=== PATIENT | male | born 1965 | race Caucasian/White ===

== ENCOUNTER → 2018-08-27 | Outpatient (CLI) | payer OTHER ==
[2018-08-28 15:55] LABS: Stool Occult Bld Immuno 1 Negative (NEGATIVE)
== END | disposition home or self-care (01) ==
LOC: LAB SHORT 11:15 → LAB 11:15 → LAB FUT 08-10 16:15
PROVIDERS: Nurse Practitioner Family
DX: K62.5 Hemorrhage of anus and rectum (principal)
CPT/HCPCS: 82274

== ENCOUNTER → 2019-07-01 | Outpatient (CLI) | payer BC | END | disposition home or self-care (01) | LOC: LAB 10:23 → LAB SHORT 10:23 | DX: K58.9 Irritable bowel syndrome, unspecified (principal) | CPT/HCPCS: 87338 ==

== ENCOUNTER 2020-09-03 08:55 | Day surgery (SDC) | payer BC ==
[~2020-09-03] VITALS: Ht 180.3 cm; Wt 129.9 kg
[2020-09-03] MEDS ORDERED: METO100ER PO (09:11)
[2020-09-03] MEDS ORDERED: LOSA25 PO (09:12)
--- NOTE | 2020-09-03 09:48 | NUR ---
09/03/20 0948 Ivette Odell History, Chart, Medications and Allergies reviewed before start of procedure.Patient confirms NPO status and agrees with scheduled surgery.PATIENT DETERMINED TO BE ASA APPROPRIATE FOR MODERATE SEDATION PRIOR TO START OF PROCEDURE BY .3-LEAD EKG REVIEWED WITH PHYSICIAN PRIOR TO START OF PROCEDURE.MONITOR INTACT WITH CONTINUOUS PULSE OXIMETRY AND INTERMITTENT BP.
--- NOTE | 2020-09-03 10:19 | NUR ---
Patient up to Ambulate independently. Gait steady. Discharge instructions reviewed with patient. Patient verbalizes understanding. Copy given to patient to take home. Discharged via wheelchair to private car for ride home.
== END 2020-09-03 22:48 | disposition home or self-care (01) ==
LOC: ORD 08:55 → ORSCMMR 08:55 → ORD 10:00
PROVIDERS: Internal Medicine Gastroenterology
PROC: 0DBN8ZX Excision of Sigmoid Colon, Via Natural or Artificial Opening Endoscopic, Diagnostic (ICD-10-PCS; principal; 2020-09-03 10:00)
DX: R19.4 Change in bowel habit (principal); R19.8 Other specified symptoms and signs involving the digestive system and abdomen; D12.5 Benign neoplasm of sigmoid colon; I10 Essential (primary) hypertension; E78.00 Pure hypercholesterolemia, unspecified; G47.33 Obstructive sleep apnea (adult) (pediatric); Z79.899 Other long term (current) drug therapy; Z79.82 Long term (current) use of aspirin
CPT/HCPCS: 88305; J2250; J3010; J7120

== ENCOUNTER → 2021-12-27 | Outpatient (CLI) | payer BC ==
[~2021-12-27] MED LIST: LOSA25 PO; METO100ER PO
== END ==
LOC: LAB SHORT 14:18 → PLD 14:18 → LAB SHORT 01-13 14:16
DX: D48.5 Neoplasm of uncertain behavior of skin (principal)
CPT/HCPCS: 88312

== ENCOUNTER → 2021-12-27 | Outpatient (CLI) | payer BC | END | disposition home or self-care (01) | LOC: LAB SHORT 17:08 → LAB 17:08 | DX: L08.9 Local infection of the skin and subcutaneous tissue, unspecified (principal); D48.5 Neoplasm of uncertain behavior of skin; L57.8 Other skin changes due to chronic exposure to nonionizing radiation; R21 Rash and other nonspecific skin eruption | CPT/HCPCS: 87070; 87077; 87186; 87205 ==

== ENCOUNTER → 2022-01-20 | Outpatient (CLI) | payer BC | END | disposition home or self-care (01) | LOC: LAB SHORT 15:54 | DX: L08.9 Local infection of the skin and subcutaneous tissue, unspecified (principal); L20.84 Intrinsic (allergic) eczema; B35.4 Tinea corporis; L81.0 Postinflammatory hyperpigmentation; R60.0 Localized edema | CPT/HCPCS: 87070; 87205 ==